=== PATIENT | male | born 1950 | race Caucasian/White ===

== ENCOUNTER 2018-08-05 06:18 | Outpatient (CLI) | payer OTHER ==
[~2018-08-05] VITALS: Ht 170.2 cm; Wt 88.0 kg
[2018-08-05] MEDS ORDERED: ROSU20TA PO (13:27)
[2018-08-05] MEDS ORDERED: LISI-552 PO (13:27)
== END 2018-08-05 13:29 | disposition home or self-care (01) ==
LOC: PREOP 06:18
PROVIDERS: ATTEND Internal Medicine
DX: Z01.818 Encounter for other preprocedural examination (principal)

== ENCOUNTER 2018-08-12 07:29 | Day surgery (SDC) | payer MEDICARE, OTHER ==
--- NOTE | 2018-08-02 04:38 | HISTORY AND PHYSICAL ---
DATE OF SERVICE: COLONOSCOPY HISTORY AND PHYSICAL HISTORY OF PRESENT ILLNESS: The patient is a 68-year-old white male referred for screening colonoscopy by Dr. Cardona. He believes that he had one other colonoscopy per Dr. Dejesus over 10 years ago. There is no record in our electronic medical record, probably predates this. He is deemed to be of average risk as he is not aware of any family history for colon cancer or polyps and he does not believe that he had any polyps on his earlier colonoscopy. He denies abdominal pain, bowel habit change, melena or bright red blood per rectum. PAST MEDICAL HISTORY: Significant for hypertension and hyperlipidemia. He underwent cardiac catheterization in 2008 and was found to have no evidence for coronary artery disease. PAST SURGICAL HISTORY: He has had bilateral inguinal hernia repair. REVIEW OF SYSTEMS: CONSTITUTIONAL: He denies any night sweats, chills, fever or weight change. CARDIOVASCULAR: He denies chest pain or discomfort, shortness of breath, palpitations or syncope. RESPIRATORY: The patient denies cough, dyspnea or pedal edema. GASTROINTESTINAL: As stated in the HPI. PHYSICAL EXAMINATION: GENERAL: Reveals a well-appearing white male, in no acute distress. HEENT: Unremarkable with a Mallampati class 3 oropharyngeal configuration. VITAL SIGNS: Blood pressure 130/80, heart rate 66 and regular. HEENT: Oral cavity was clear. No exudate was noted. CHEST: Clear to auscultation. CARDIOVASCULAR: Reveals a regular rate and rhythm without murmur, S3 or S4. ABDOMEN: Soft, supple without mass, organomegaly or tenderness. Bowel sounds are positive. No bruits are noted. No evidence to palpation is noted for abdominal aortic aneurysm. EXTREMITIES: Reveal no cyanosis, clubbing or edema. ASSESSMENT: The patient was set up for screening colonoscopy on 08/12/2018. Prep instructions with split dose prep were given and questions were answered. I thank you for the referral of this pleasant gentleman. Job ID: [id number] DocumentID: [id number] Dictated Date: 07/28/2018 16:35:29 Census Clerk Date: 07/28/2018 17:02:29 Dictated By: HAYLIE MARIE MD
[~2018-08-12] VITALS: Ht 170.2 cm; Wt 88.0 kg
[~2018-08-12 07:29] MED LIST: LISI-552 PO; ROSU20TA PO
[2018-08-12] MEDS ORDERED: D5 LR IV SOLUTION 1,000 ML IV ONE (07:31)
--- OUTSIDE RECORDS SUMMARY | 2018-08-12 07:33 | XMS REPORT | CCD ---
Author Author [facility] Organization [facility] Address [address] [place] [address] Phone Care Team Providers Care General Dentist/Owner Name Role Phone PP Unavailable CCM Unavailable Summary Purpose Interface Exchange Insurance Providers Payer name Policy type / Coverage type Covered democrat ID Effective Begin Date Effective End Date [employer] Medicare Part B [id number] Unknown [facility] Medicare Part B [id number] Unknown Family history Mother Diagnosis Age At Onset Skin cancer Unknown Father Diagnosis Age At Onset Cancer Unknown Skin cancer Unknown Hypertension Unknown Social History Social History Element Codes Description Effective Dates Marital status Unknown [place] 01/05/2017 Number of children Unknown 2 01/05/2017 Employment Unknown Retired 01/05/[address]: 0401045 Former smoker 1978 01/05/[address]: 826310 Currently drinks alcohol 01/05/2017 Frequency of drinks SNOMED CT: 070032510 1-4 drinks per week 3 wkly 01/05/2017 Allergies, Adverse Reactions, Alerts Substance Reaction Codes Entered Date Inactivated Date Status * NO KNOWN DRUG ALLERGIES Unknown 01/05/2017 No Inactive Date Active Past Medical History Illness Codes Condition Status Onset Date Resolved Date Essential (primary) hypertension ICD-9: 401.1 ICD-10: I10 Active 01/05/2017 Unknown Mixed hyperlipidemia ICD-9: 272.2 ICD-10: E78.2 Active 01/05/2017 Unknown Encounter for screening for malignant neoplasm of prostate ICD-9: V76.44 ICD-10: Z12.5 Active 06/29/2018 Unknown Hyperglycemia, unspecified ICD-9: 790.29 ICD-10: R73.9 Active 12/31/2017 Unknown Problems Condition Codes Effective Dates Condition Status Essential (primary) hypertension ICD-9: 401.1 ICD-10: I10 01/05/2017 Active Mixed hyperlipidemia ICD-9: 272.2 ICD-10: E78.2 01/05/2017 Active Encounter for screening for malignant neoplasm of prostate ICD-9: V76.44 ICD-10: Z12.5 06/29/2018 Active Hyperglycemia, unspecified ICD-9: 790.29 ICD-10: R73.9 12/31/2017 Active Medications Medication Codes Instructions Start Date Stop Date Status Fill Instructions bisoprolol 10 mg-hydrochlorothiazide 6.25 mg tablet RxNorm: 033764 1 Tablet(s) PO daily 07/04/2018 06/28/2019 Active Avodart 0.5 mg capsule RxNorm: 240469 1 Capsule(s) PO QPM 07/0409/26/2019 Active rosuvastatin 10 mg tablet RxNorm: 043747 Tablet(s) TAKE 1 TABLET DAILY 07/04/2018 06/28/2019 Active Avodart 0.5 mg capsule RxNorm: 637921 1 Capsule(s) PO QPM 07/0407/03/2018 Inactive rosuvastatin 10 mg tablet RxNorm: 529548 TAKE 1 TABLET DAILY 07/03/2018 Inactive rosuvastatin 10 mg tablet RxNorm: 295075 1 Tablet(s) PO daily 05/27/2017 02/20/2018 Inactive bisoprolol 10 mg-hydrochlorothiazide 6.25 mg tablet RxNorm: 433250 1 Tablet(s) PO daily 05/27/2017 02/20/2018 Inactive bisoprolol 10 mg-hydrochlorothiazide 6.25 mg tablet RxNorm: 703388 1 Tablet(s) PO daily 01/05/2017 01/04/2017 Inactive bisoprolol 10 mg-hydrochlorothiazide 6.25 mg tablet RxNorm: 569789 1 Tablet(s) PO daily 01/05/2017 05/26/2017 Inactive rosuvastatin 10 mg tablet RxNorm: 966065 1 Tablet(s) PO daily 01/05/2017 05/26/2017 Inactive rosuvastatin 10 mg tablet RxNorm: 456178 1 Tablet(s) PO daily No Start Date 01/04/2017 Inactive Medication Administered No Medication Administered data Immunizations No Immunization data Assessments Condition Codes Effective Dates Essential (primary) hypertension ICD-10: I10 ICD-9: 401.1 07/04/2018 Mixed hyperlipidemia ICD-10: E78.2 ICD-9: 272.2 07/04/2018 Encounter for screening for malignant neoplasm of prostate ICD-10: Z12.5 ICD-9: V76.44 06/29/2018 Hyperglycemia, unspecified ICD-10: R73.9 ICD-9: 790.29 12/31/2017 Reason For Visit Reason For Visit Effective Dates Notes hypertension 07/04/2018 hypertension 01/03/2018 hypertension 07/08/2017 hypertension 01/05/2017 Results Observation Observation Code Item Item Code Result Date Tsh Ord6 TSH (3rd IS) 3.23 uIU/mL 06/30/2018 Total Psa Ord10 PSA 4.09 ng/mL 06/30/2018 Cbc With Differential Ord2 WBC 5.08 K/ul 06/30/2018 Cbc With Differential Ord2 RBC 4.76 M/ul 06/30/2018 Cbc With Differential Ord2 HGB 15.8 g/dl 06/30/2018 Cbc With Differential Ord2 HCT 44.5 % 06/30/2018 Cbc With Differential Ord2 Neut% 53.6 % 06/30/2018 Cbc With Differential Ord2 Lymph% 35.0 % 06/30/2018 Cbc With Differential Ord2 MCV 93.5 fl 06/30/2018 Cbc With Differential Ord2 [place]% 9.4 % 06/30/2018 Cbc With Differential Ord2 MCH 33.2 pg 06/30/2018 Cbc With Differential Ord2 Eos% 1.6 % 06/30/2018 Cbc With Differential Ord2 MCHC 35.5 pg 06/30/2018 Cbc With Differential Ord2 PLT 184 K/ul 06/30/2018 Cbc With Differential Ord2 Baso% 0.4 % 06/30/2018 Cbc With Differential Ord2 Neut ABS# 2.72 K/ul 06/30/2018 Cbc With Differential Ord2 RDW 12.5 % 06/30/2018 Cbc With Differential Ord2 Lymph ABS# 1.78 K/ul 06/30/2018 Cbc With Differential Ord2 [place] ABS# 0.5 K/ul 06/30/2018 Cbc With Differential Ord2 Eos ABS# 0.1 K/ul 06/30/2018 Cbc With Differential Ord2 Baso ABS# 0.0 K/ul 06/30/2018 Lipid Ord30 CHOL 152 mg/dL 06/30/2018 Lipid Ord30 HDL 51.0 mg/dl 06/30/2018 Lipid Ord30 TRIG 102 mg/dL 06/30/2018 Lipid Ord30 LDL 81 mg/dL 06/30/2018 Lipid Ord30 C/HDL 3.0 Ratio 06/30/2018 Comp Metabolic Foo520 NA 139 mEq/L 06/30/2018 Comp Metabolic Dhd219 K 4.7 mEq/L 06/30/2018 Comp Metabolic Wys624 CL 101 mEq/L 06/30/2018 Comp Metabolic Zka972 CO2 31.0 mEq/L 06/30/2018 Comp Metabolic Ygu595 ANION GAP 12 06/30/2018 Comp Metabolic Fxk023 GLUCOSE 128 mg/dL 06/30/2018 Comp Metabolic Llr665 Creat 1.0 mg/dL 06/30/2018 Comp Metabolic Jgf601 eGFR 81 ml/min/1.73m2 06/30/2018 Comp Metabolic Pjk570 BUN 20 mg/dL 06/30/2018 Comp Metabolic Teq288 B/C Ratio 20.4 Ratio 06/30/2018 Comp Metabolic Ppr925 CALCIUM 9.7 mg/dL 06/30/2018 Comp Metabolic Ogc042 ALK PHOS 41 U/L 06/30/2018 Comp Metabolic Mwx597 AST(SGOT) 22 U/L 06/30/2018 Comp Metabolic Qdc239 ALT(SGPT) 39 U/L 06/30/2018 Comp Metabolic Wmf292 BILI T 1.0 mg/dL 06/30/2018 Comp Metabolic Wps050 ALBUMIN 4.4 g/dL 06/30/2018 Comp Metabolic Ywg561 TPRO 6.9 g/dL 06/30/2018 Comp Metabolic Vom520 GLOB 2.5 g/dL 06/30/2018 Comp Metabolic Qvg506 A/G Ratio 1.7 Ratio 06/30/2018 Comp Metabolic Zln958 Osmo 282 mOsmo 06/30/2018 Comp Metabolic Fyl822 NA 140 mEq/L 12/31/2017 Comp Metabolic Vtq168 K 5.1 mEq/L 12/31/2017 Comp Metabolic Zmt035 CL 103 mEq/L 12/31/2017 Comp Metabolic Bjx994 CO2 31.0 mEq/L 12/31/2017 Comp Metabolic Zgm378 ANION GAP 11 12/31/2017 Comp Metabolic Xba062 GLUCOSE 134 mg/dL 12/31/2017 Comp Metabolic Pcy405 Creat 1.0 mg/dL 12/31/2017 Comp Metabolic Fxm857 eGFR 84 ml/min/1.73m2 12/31/2017 Comp Metabolic Epn787 BUN 22 mg/dL 12/31/2017 Comp Metabolic Ahj410 B/C Ratio 23.2 Ratio 12/31/2017 Comp Metabolic Ofd063 CALCIUM 9.6 mg/dL 12/31/2017 Comp Metabolic Tuh990 ALK PHOS 37 U/L 12/31/2017 Comp Metabolic Zbo528 AST(SGOT) 19 U/L 12/31/2017 Comp Metabolic Bvc816 ALT(SGPT) 28 U/L 12/31/2017 Comp Metabolic Wva490 BILI T 0.8 mg/dL 12/31/2017 Comp Metabolic Cug976 ALBUMIN 4.4 g/dL 12/31/2017 Comp Metabolic Whp639 TPRO 6.8 g/dL 12/31/2017 Comp Metabolic Zdv657 GLOB 2.4 g/dL 12/31/2017 Comp Metabolic Gnf862 A/G Ratio 1.8 Ratio 12/31/2017 Comp Metabolic Oji170 Osmo 285 mOsmo 12/31/2017 Cbc With Differential Ord2 WBC 5.78 K/ul 12/31/2017 Cbc With Differential Ord2 RBC 4.89 M/ul 12/31/2017 Cbc With Differential Ord2 HGB 16.5 g/dl 12/31/2017 Cbc With Differential Ord2 HCT 45.7 % 12/31/2017 Cbc With Differential Ord2 Neut% 56.2 % 12/31/2017 Cbc With Differential Ord2 MCV 93.5 fl 12/31/2017 Cbc With Differential Ord2 Lymph% 32.9 % 12/31/2017 Cbc With Differential Ord2 MCH 33.7 pg 12/31/2017 Cbc With Differential Ord2 [place]% 9.3 % 12/31/2017 Cbc With Differential Ord2 MCHC 36.1 pg 12/31/2017 Cbc With Differential Ord2 Eos% 1.4 % 12/31/2017 Cbc With Differential Ord2 PLT 194 K/ul 12/31/2017 Cbc With Differential Ord2 Baso% 0.2 % 12/31/2017 Cbc With Differential Ord2 RDW 12.2 % 12/31/2017 Cbc With Differential Ord2 Neut ABS# 3.25 K/ul 12/31/2017 Cbc With Differential Ord2 Lymph ABS# 1.90 K/ul 12/31/2017 Cbc With Differential Ord2 [place] ABS# 0.5 K/ul 12/31/2017 Cbc With Differential Ord2 Eos ABS# 0.1 K/ul 12/31/2017 Cbc With Differential Ord2 Baso ABS# 0.0 K/ul 12/31/2017 Lipid Ord30 CHOL 147 mg/dL 12/31/2017 Lipid Ord30 HDL 50.0 mg/dl 12/31/2017 Lipid Ord30 TRIG 91 mg/dL 12/31/2017 Lipid Ord30 LDL 79 mg/dL 12/31/2017 Lipid Ord30 C/HDL 2.9 Ratio 12/31/2017 %Hba1C Wth923 % HbA1c 29608-3 5.5 % 12/31/2017 %Hba1C Mje147 Gluc Ave 111 mg/dL 12/31/2017 Lipid Ord30 CHOL 154 mg/dL 07/02/2017 Lipid Ord30 HDL 49.0 mg/dl 07/02/2017 Lipid Ord30 TRIG 104 mg/dL 07/02/2017 Lipid Ord30 LDL 84 mg/dL 07/02/2017 Lipid Ord30 C/HDL 3.1 Ratio 07/02/2017 Tsh Ord6 hTSH II 2.76 uIU/mL 07/02/2017 Comp Metabolic Cwg917 NA 141 mEq/L 07/02/2017 Comp Metabolic Ilu970 K 4.7 mEq/L 07/02/2017 Comp Metabolic Hus738 CL 103 mEq/L 07/02/2017 Comp Metabolic Unl655 CO2 31.0 mEq/L 07/02/2017 Comp Metabolic Qzj901 ANION GAP 12 07/02/2017 Comp Metabolic Ebh962 GLUCOSE 135 mg/dL 07/02/2017 Comp Metabolic Gco063 Creat 0.9 mg/dL 07/02/2017 Comp Metabolic Ysm888 eGFR 90 ml/min/1.73m2 07/02/2017 Comp Metabolic Iuq632 BUN 16 mg/dL 07/02/2017 Comp Metabolic Xfi637 B/C Ratio 17.8 Ratio 07/02/2017 Comp Metabolic Jhr869 CALCIUM 9.7 mg/dL 07/02/2017 Comp Metabolic Koy245 ALK PHOS 42 U/L 07/02/2017 Comp Metabolic Czl069 AST(SGOT) 24 U/L 07/02/2017 Comp Metabolic Iey219 ALT(SGPT) 36 U/L 07/02/2017 Comp Metabolic Sng695 BILI T 1.1 mg/dL 07/02/2017 Comp Metabolic Stk982 ALBUMIN 4.5 g/dL 07/02/2017 Comp Metabolic Erx380 TPRO 6.7 g/dL 07/02/2017 Comp Metabolic Kib983 GLOB 2.3 g/dL 07/02/2017 Comp Metabolic Yfn406 A/G Ratio 2.0 Ratio 07/02/2017 Comp Metabolic Dlv628 Osmo 284 mOsmo 07/02/2017 Cbc With Differential Ord2 WBC 5.15 K/ul 07/02/2017 Cbc With Differential Ord2 RBC 4.75 M/ul 07/02/2017 Cbc With Differential Ord2 HGB 16.1 g/dl 07/02/2017 Cbc With Differential Ord2 HCT 44.6 % 07/02/2017 Cbc With Differential Ord2 Neut% 55.7 % 07/02/2017 Cbc With Differential Ord2 Lymph% 34.2 % 07/02/2017 Cbc With Differential Ord2 MCV 93.9 fl 07/02/2017 Cbc With Differential Ord2 MCH 33.9 pg 07/02/2017 Cbc With Differential Ord2 [place]% 8.0 % 07/02/2017 Cbc With Differential Ord2 MCHC 36.1 pg 07/02/2017 Cbc With Differential Ord2 Eos% 1.7 % 07/02/2017 Cbc With Differential Ord2 PLT 182 K/ul 07/02/2017 Cbc With Differential Ord2 Baso% 0.4 % 07/02/2017 Cbc With Differential Ord2 RDW 12.4 % 07/02/2017 Cbc With Differential Ord2 Neut ABS# 2.87 K/ul 07/02/2017 Cbc With Differential Ord2 Lymph ABS# 1.76 K/ul 07/02/2017 Cbc With Differential Ord2 [place] ABS# 0.4 K/ul 07/02/2017 Cbc With Differential Ord2 Eos ABS# 0.1 K/ul 07/02/2017 Cbc With Differential Ord2 Baso ABS# 0.0 K/ul 07/02/2017 %Hba1C Cno995 % HbA1c 88125-7 5.3 % 07/02/2017 %Hba1C Mtv616 Gluc Ave 105 mg/dL 07/02/2017 Review of Systems System Result Effective Dates Constitutional No recent illness 2018 Constitutional No chills 07/04/2018 Constitutional No fatigue 07/04/2018 Constitutional No fever 07/04/2018 Constitutional No insomnia 07/04/2018 Constitutional No malaise 07/04/2018 Eyes No vision change 07/04/2018 Ears/Nose/Throat/Neck No dental pain 12/2018 Ears/Nose/Throat/Neck No dizziness 2018 Ears/Nose/Throat/Neck No dysphagia 2018 Ears/Nose/Throat/Neck No headache 2018 Ears/Nose/Throat/Neck No hearing loss 12/2018 Ears/Nose/Throat/Neck No nasal allergies 07/04/2018 Ears/Nose/Throat/Neck No sore throat 12/2018 Ears/Nose/Throat/Neck No postnasal drip 07/04/2018 Ears/Nose/Throat/Neck No sinus congestion 07/04/2018 Cardiovascular No chest pain/pressure 12/2018 Cardiovascular No dyspnea 07/04/2018 Cardiovascular No edema 07/04/2018 Cardiovascular No exercise intolerance Cardiovascular No fatigue 07/04/2018 Cardiovascular No near-syncope/dizziness 07/04/2018 Respiratory No chest tightness 2018 Respiratory No cough 07/04/2018 Respiratory No dyspnea 07/04/2018 Respiratory No pedal edema 07/04/2018 Gastrointestinal No abdominal pain 2018 Gastrointestinal No constipation 2018 Gastrointestinal No diarrhea 07/04/2018 Gastrointestinal No gastroesophageal reflux 07/04/2018 Gastrointestinal No nausea 07/04/2018 Gastrointestinal No vomiting 07/04/2018 Genitourinary/Nephrology No dysuria 07/04 Genitourinary/Nephrology No nocturia 12/2018 Genitourinary/Nephrology No urinary incontinence 07/04/2018 Musculoskeletal No stiffness 07/04/2018 Musculoskeletal No swelling 07/04/2018 Musculoskeletal No muscle weakness 2018 Musculoskeletal No myalgias 07/04/2018 Dermatologic No rash 07/04/2018 Dermatologic No sores 07/04/2018 Neurologic No dizziness 07/04/2018 Neurologic No headache 07/04/2018 Neurologic No neck pain 07/04/2018 Neurologic No syncope 07/04/2018 Psychiatric No anxiety 07/04/2018 Psychiatric No depression 07/04/2018 Musculoskeletal joint complaint 2018 Constitutional No recent illness 2017 Constitutional No chills 01/03/2018 Constitutional No fatigue 01/03/2018 Constitutional No fever 01/03/2018 Constitutional No insomnia 01/03/2018 Constitutional No malaise 01/03/2018 Eyes No vision change 01/03/2018 Ears/Nose/Throat/Neck No dental pain 02/2018 Ears/Nose/Throat/Neck No dizziness 2017 Ears/Nose/Throat/Neck No dysphagia 2017 Ears/Nose/Throat/Neck No headache 2017 Ears/Nose/Throat/Neck No hearing loss 02/2018 Ears/Nose/Throat/Neck No nasal allergies 01/03/2018 Ears/Nose/Throat/Neck No sore throat 02/2018 Ears/Nose/Throat/Neck No postnasal drip 01/03/2018 Ears/Nose/Throat/Neck No sinus congestion 01/03/2018 Cardiovascular No chest pain/pressure 02/2018 Cardiovascular No dyspnea 01/03/2018 Cardiovascular No edema 01/03/2018 Cardiovascular No exercise intolerance Cardiovascular No fatigue 01/03/2018 Cardiovascular No near-syncope/dizziness 01/03/2018 Respiratory No chest tightness 2017 Respiratory No cough 01/03/2018 Respiratory No dyspnea 01/03/2018 Respiratory No pedal edema 01/03/2018 Gastrointestinal No abdominal pain 2017 Gastrointestinal No constipation 2017 Gastrointestinal No diarrhea 01/03/2018 Gastrointestinal No gastroesophageal reflux 01/03/2018 Gastrointestinal No nausea 01/03/2018 Gastrointestinal No vomiting 01/03/2018 Genitourinary/Nephrology No dysuria 01/03 Genitourinary/Nephrology No nocturia 02/2018 Genitourinary/Nephrology No urinary incontinence 01/03/2018 Musculoskeletal No stiffness 01/03/2018 Musculoskeletal No swelling 01/03/2018 Musculoskeletal No muscle weakness 2017 Musculoskeletal No myalgias 01/03/2018 Dermatologic No rash 01/03/2018 Dermatologic No sores 01/03/2018 Neurologic No dizziness 01/03/2018 Neurologic No headache 01/03/2018 Neurologic No neck pain 01/03/2018 Neurologic No syncope 01/03/2018 Psychiatric No anxiety 01/03/2018 Psychiatric No depression 01/03/2018 Constitutional No recent illness 2017 Constitutional No chills 07/08/2017 Constitutional No fatigue 07/08/2017 Constitutional No fever 07/08/2017 Constitutional No insomnia 07/08/2017 Constitutional No malaise 07/08/2017 Eyes No vision change 07/08/2017 Ears/Nose/Throat/Neck No dental pain 04/2018 Ears/Nose/Throat/Neck No dizziness 2017 Ears/Nose/Throat/Neck No dysphagia 2017 Ears/Nose/Throat/Neck No headache 2017 Ears/Nose/Throat/Neck No hearing loss 04/2018 Ears/Nose/Throat/Neck No nasal allergies 07/08/2017 Ears/Nose/Throat/Neck No sore throat 04/2018 Ears/Nose/Throat/Neck No postnasal drip 07/08/2017 Ears/Nose/Throat/Neck No sinus congestion 07/08/2017 Cardiovascular No chest pain/pressure 04/2018 Cardiovascular No dyspnea 07/08/2017 Cardiovascular No edema 07/08/2017 Cardiovascular No exercise intolerance Cardiovascular No fatigue 07/08/2017 Cardiovascular No near-syncope/dizziness 07/08/2017 Respiratory No chest tightness 2017 Respiratory No cough 07/08/2017 Respiratory No dyspnea 07/08/2017 Respiratory No pedal edema 07/08/2017 Gastrointestinal No abdominal pain 2017 Gastrointestinal No constipation 2017 Gastrointestinal No diarrhea 07/08/2017 Gastrointestinal No gastroesophageal reflux 07/08/2017 Gastrointestinal No nausea 07/08/2017 Gastrointestinal No vomiting 07/08/2017 Genitourinary/Nephrology No dysuria 07/08 Genitourinary/Nephrology No nocturia 04/2018 Genitourinary/Nephrology No urinary incontinence 07/08/2017 Musculoskeletal No stiffness 07/08/2017 Musculoskeletal No swelling 07/08/2017 Musculoskeletal No muscle weakness 2017 Musculoskeletal No myalgias 07/08/2017 Dermatologic No rash 07/08/2017 Dermatologic No sores 07/08/2017 Neurologic No dizziness 07/08/2017 Neurologic No headache 07/08/2017 Neurologic No neck pain 07/08/2017 Neurologic No syncope 07/08/2017 Psychiatric No anxiety 07/08/2017 Psychiatric No depression 07/08/2017 Constitutional No recent illness 2016 Constitutional No chills 01/05/2017 Constitutional No fatigue 01/05/2017 Constitutional No fever 01/05/2017 Constitutional No insomnia 01/05/2017 Constitutional No malaise 01/05/2017 Eyes No vision change 01/05/2017 Ears/Nose/Throat/Neck No dental pain 04/2017 Ears/Nose/Throat/Neck No dizziness 2016 Ears/Nose/Throat/Neck No dysphagia 2016 Ears/Nose/Throat/Neck No headache 2016 Ears/Nose/Throat/Neck No hearing loss 04/2017 Ears/Nose/Throat/Neck No nasal allergies 01/05/2017 Ears/Nose/Throat/Neck No sore throat 04/2017 Ears/Nose/Throat/Neck No postnasal drip 01/05/2017 Ears/Nose/Throat/Neck No sinus congestion 01/05/2017 Cardiovascular No chest pain/pressure 04/2017 Cardiovascular No dyspnea 01/05/2017 Cardiovascular No edema 01/05/2017 Cardiovascular No exercise intolerance Cardiovascular No fatigue 01/05/2017 Cardiovascular No near-syncope/dizziness 01/05/2017 Respiratory No chest tightness 2016 Respiratory No cough 01/05/2017 Respiratory No dyspnea 01/05/2017 Respiratory No pedal edema 01/05/2017 Gastrointestinal No abdominal pain 2016 Gastrointestinal No constipation 2016 Gastrointestinal No diarrhea 01/05/2017 Gastrointestinal No gastroesophageal reflux 01/05/2017 Gastrointestinal No nausea 01/05/2017 Gastrointestinal No vomiting 01/05/2017 Genitourinary/Nephrology No dysuria 01/05 Genitourinary/Nephrology No nocturia 04/2017 Genitourinary/Nephrology No urinary incontinence 01/05/2017 Musculoskeletal No stiffness 01/05/2017 Musculoskeletal No swelling 01/05/2017 Musculoskeletal No muscle weakness 2016 Musculoskeletal No myalgias 01/05/2017 Dermatologic No rash 01/05/2017 Dermatologic No sores 01/05/2017 Neurologic No dizziness 01/05/2017 Neurologic No headache 01/05/2017 Neurologic No neck pain 01/05/2017 Neurologic No syncope 01/05/2017 Psychiatric No anxiety 01/05/2017 Psychiatric No depression 01/05/2017 Physical Exam Exam Name System Name Item Name Status Result Effective Dates Notes Full Exam - General 1994 Constitutional general appearance Development: well developed 07/04/2018 None Full Exam - General 1994 Constitutional general appearance Development: appears stated age 0107/04/2018 None Full Exam - General 1994 Constitutional general appearance Hygiene/Attention to Grooming: good hygiene 07/04/2018 None Full Exam - General 1994 Eyes conjunctiva /eyelids Overall: conjunctiva clear 07/04/2018 None Full Exam - General 1994 Eyes conjunctiva /eyelids Overall: cornea clear 07/04/2018 None Full Exam - General 1994 Eyes conjunctiva /eyelids Overall: eyelids normal 07/04/2018 None Full Exam - General 1994 Eyes pupils and irises Overall: pupils equal, round, reactive to light and accomodation 07/04/2018 None Full Exam - General 1995 Ears/Nose/Throat otoscopic exam Overall: external auditory canals clear 07/04/2018 None Full Exam - General 1994 Ears/Nose/Throat otoscopic exam Overall: tympanic membranes clear 07/04/2018 None Full Exam - General 1995 Ears/Nose/Throat lips/teeth/gingiva Overall: benign lips 07/04/2018 None Full Exam - General 1994 Ears/Nose/Throat lips/teeth/gingiva Overall: normal dentition 07/04/2018 None Full Exam - General 1995 Ears/Nose/Throat oral cavity/pharynx/larynx Overall: oral mucosa clear 07/04/2018 None Full Exam - General 1995 Ears/Nose/Throat oral cavity/pharynx/larynx Overall: oropharyngeal mucosa clear 07/04/2018 None Full Exam - General 1994 Ears/Nose/Throat oral cavity/pharynx/larynx Overall: hypopharynx benign 07/04/2018 None Full Exam - General 1994 Ears/Nose/Throat oral cavity/pharynx/larynx Overall: no masses 07/04/2018 None Full Exam - General 1994 Respiratory auscultation Overall: breath sounds clear bilaterally 07/04/2018 None Full Exam - General 1994 Respiratory respiratory effort/rhythm Overall: no retractions 07/04/2018 None Full Exam - General 1994 Respiratory respiratory effort/rhythm Overall: normal rate 07/04/2018 None Full Exam - General 1994 Cardiovascular extremities Overall: no clubbing 07/04/2018 None Full Exam - General 1994 Cardiovascular auscultation of heart Overall: regular rate 07/04/2018 None Full Exam - General 1994 Cardiovascular auscultation of heart Overall: normal heart sounds 07/04/2018 None Full Exam - General 1994 Abdomen abdominal exam Overall: no tenderness 07/04/2018 None Full Exam - General 1994 Abdomen abdominal exam Overall: normal bowel sounds 07/04/2018 None Full Exam - General 1994 Lymphatic neck nodes Overall: anterior cervical chain benign 07/04/2018 None Full Exam - General 1994 Lymphatic neck nodes Overall: posterior cervical chain benign 07/04/2018 None Full Exam - General 1994 Musculoskeletal spine, ribs and pelvis Overall: spine benign 07/04/2018 None Full Exam - General 1994 Musculoskeletal spine, ribs and pelvis Overall: sacroiliac joint benign 07/04/2018 None Full Exam - General 1994 Musculoskeletal spine, ribs and pelvis Overall: good posture 07/04/2018 None Full Exam - General 1994 Musculoskeletal head and neck Overall: head atraumatic 07/04/2018 None Full Exam - General 1994 Musculoskeletal head and neck Overall: cervical spine benign 07/04/2018 None Full Exam - General 1994 Integument inspection of skin Overall: few scattered moles, no gross abnormalities 07/04/2018 None Full Exam - General 1994 Neurologic deep tendon reflexes Overall: deep tendon reflexes intact 07/04/2018 None Full Exam - General 1994 Neurologic cranial nerves Overall: crainial nerves 2 - 12 grossly intact 07/04/2018 None Full Exam - General 1994 Psychiatric orientation/consciousness Overall: oriented to person, place and time 07/04/2018 None Full Exam - General 1994 Psychiatric mood and affect Overall: normal mood and affect 07/04/2018 None Full Exam - General 1994 Abdomen rectal exam Overall: good sphincter tone, no masses, no lesions 07/04/2018 None Full Exam - General 1994 Abdomen rectal exam Prostate: enlarged 07/04/2018 no nodules noted Full Exam - General 1994 Constitutional general appearance Development: well developed 01/03/2018 None Full Exam - General 1994 Constitutional general appearance Development: appears stated age 0701/03/2018 None Full Exam - General 1994 Constitutional general appearance Hygiene/Attention to Grooming: good hygiene 01/03/2018 None Full Exam - General 1994 Eyes conjunctiva /eyelids Overall: conjunctiva clear 01/03/2018 None Full Exam - General 1994 Eyes conjunctiva /eyelids Overall: cornea clear 01/03/2018 None Full Exam - General 1994 Eyes conjunctiva /eyelids Overall: eyelids normal 01/03/2018 None Full Exam - General 1994 Eyes pupils and irises Overall: pupils equal, round, reactive to light and accomodation 01/03/2018 None Full Exam - General 1994 Ears/Nose/Throat otoscopic exam Overall: external auditory canals clear 01/03/2018 None Full Exam - General 1994 Ears/Nose/Throat otoscopic exam Overall: tympanic membranes clear 01/03/2018 None Full Exam - General 1994 Ears/Nose/Throat lips/teeth/gingiva Overall: benign lips 01/03/2018 None Full Exam - General 1994 Ears/Nose/Throat lips/teeth/gingiva Overall: normal dentition 01/03/2018 None Full Exam - General 1994 Ears/Nose/Throat oral cavity/pharynx/larynx Overall: oral mucosa clear 01/03/2018 None Full Exam - General 1995 Ears/Nose/Throat oral cavity/pharynx/larynx Overall: oropharyngeal mucosa clear 01/03/2018 None Full Exam - General 1994 Ears/Nose/Throat oral cavity/pharynx/larynx Overall: hypopharynx benign 01/03/2018 None Full Exam - General 1994 Ears/Nose/Throat oral cavity/pharynx/larynx Overall: no masses 01/03/2018 None Full Exam - General 1994 Respiratory auscultation Overall: breath sounds clear bilaterally 01/03/2018 None Full Exam - General 1994 Respiratory respiratory effort/rhythm Overall: no retractions 01/03/2018 None Full Exam - General 1994 Respiratory respiratory effort/rhythm Overall: normal rate 01/03/2018 None Full Exam - General 1994 Cardiovascular extremities Overall: no clubbing 01/03/2018 None Full Exam - General 1994 Cardiovascular auscultation of heart Overall: regular rate 01/03/2018 None Full Exam - General 1994 Cardiovascular auscultation of heart Overall: normal heart sounds 01/03/2018 None Full Exam - General 1994 Abdomen abdominal exam Overall: no tenderness 01/03/2018 None Full Exam - General 1994 Abdomen abdominal exam Overall: normal bowel sounds 01/03/2018 None Full Exam - General 1994 Lymphatic neck nodes Overall: anterior cervical chain benign 01/03/2018 None Full Exam - General 1994 Lymphatic neck nodes Overall: posterior cervical chain benign 01/03/2018 None Full Exam - General 1994 Musculoskeletal spine, ribs and pelvis Overall: spine benign 01/03/2018 None Full Exam - General 1994 Musculoskeletal spine, ribs and pelvis Overall: sacroiliac joint benign 01/03/2018 None Full Exam - General 1994 Musculoskeletal spine, ribs and pelvis Overall: good posture 01/03/2018 None Full Exam - General 1994 Musculoskeletal head and neck Overall: head atraumatic 01/03/2018 None Full Exam - General 1994 Musculoskeletal head and neck Overall: cervical spine benign 01/03/2018 None Full Exam - General 1994 Integument inspection of skin Overall: few scattered moles, no gross abnormalities 01/03/2018 None Full Exam - General 1994 Neurologic deep tendon reflexes Overall: deep tendon reflexes intact 01/03/2018 None Full Exam - General 1994 Neurologic cranial nerves Overall: crainial nerves 2 - 12 grossly intact 01/03/2018 None Full Exam - General 1994 Psychiatric orientation/consciousness Overall: oriented to person, place and time 01/03/2018 None Full Exam - General 1994 Psychiatric mood and affect Overall: normal mood and affect 01/03/2018 None Full Exam - General 1994 Constitutional general appearance Development: well developed 07/08/2017 None Full Exam - General 1994 Constitutional general appearance Development: appears stated age 0107/08/2017 None Full Exam - General 1994 Constitutional general appearance Hygiene/Attention to Grooming: good hygiene 07/08/2017 None Full Exam - General 1994 Eyes conjunctiva /eyelids Overall: conjunctiva clear 07/08/2017 None Full Exam - General 1994 Eyes conjunctiva /eyelids Overall: cornea clear 07/08/2017 None Full Exam - General 1994 Eyes conjunctiva /eyelids Overall: eyelids normal 07/08/2017 None Full Exam - General 1994 Eyes pupils and irises Overall: pupils equal, round, reactive to light and accomodation 07/08/2017 None Full Exam - General 1994 Ears/Nose/Throat otoscopic exam Overall: external auditory canals clear 07/08/2017 None Full Exam - General 1994 Ears/Nose/Throat otoscopic exam Overall: tympanic membranes clear 07/08/2017 None Full Exam - General 1994 Ears/Nose/Throat lips/teeth/gingiva Overall: benign lips 07/08/2017 None Full Exam - General 1994 Ears/Nose/Throat lips/teeth/gingiva Overall: normal dentition 07/08/2017 None Full Exam - General 1994 Ears/Nose/Throat oral cavity/pharynx/larynx Overall: oral mucosa clear 07/08/2017 None Full Exam - General 1994 Ears/Nose/Throat oral cavity/pharynx/larynx Overall: oropharyngeal mucosa clear 07/08/2017 None Full Exam - General 1994 Ears/Nose/Throat oral cavity/pharynx/larynx Overall: hypopharynx benign 07/08/2017 None Full Exam - General 1994 Ears/Nose/Throat oral cavity/pharynx/larynx Overall: no masses 07/08/2017 None Full Exam - General 1994 Respiratory auscultation Overall: breath sounds clear bilaterally 07/08/2017 None Full Exam - General 1994 Respiratory respiratory effort/rhythm Overall: no retractions 07/08/2017 None Full Exam - General 1994 Respiratory respiratory effort/rhythm Overall: normal rate 07/08/2017 None Full Exam - General 1994 Cardiovascular extremities Overall: no clubbing 07/08/2017 None Full Exam - General 1994 Cardiovascular auscultation of heart Overall: regular rate 07/08/2017 None Full Exam - General 1994 Cardiovascular auscultation of heart Overall: normal heart sounds 07/08/2017 None Full Exam - General 1994 Abdomen abdominal exam Overall: no tenderness 07/08/2017 None Full Exam - General 1994 Abdomen abdominal exam Overall: normal bowel sounds 07/08/2017 None Full Exam - General 1994 Lymphatic neck nodes Overall: anterior cervical chain benign 07/08/2017 None Full Exam - General 1994 Lymphatic neck nodes Overall: posterior cervical chain benign 07/08/2017 None Full Exam - General 1994 Musculoskeletal spine, ribs and pelvis Overall: spine benign 07/08/2017 None Full Exam - General 1994 Musculoskeletal spine, ribs and pelvis Overall: sacroiliac joint benign 07/08/2017 None Full Exam - General 1994 Musculoskeletal spine, ribs and pelvis Overall: good posture 07/08/2017 None Full Exam - General 1994 Musculoskeletal head and neck Overall: head atraumatic 07/08/2017 None Full Exam - General 1994 Musculoskeletal head and neck Overall: cervical spine benign 07/08/2017 None Full Exam - General 1994 Integument inspection of skin Overall: few scattered moles, no gross abnormalities 07/08/2017 None Full Exam - General 1994 Neurologic deep tendon reflexes Overall: deep tendon reflexes intact 07/08/2017 None Full Exam - General 1994 Neurologic cranial nerves Overall: crainial nerves 2 - 12 grossly intact 07/08/2017 None Full Exam - General 1994 Psychiatric orientation/consciousness Overall: oriented to person, place and time 07/08/2017 None Full Exam - General 1994 Psychiatric mood and affect Overall: normal mood and affect 07/08/2017 None Full Exam - General 1994 Constitutional general appearance Development: well developed 01/05/2017 None Full Exam - General 1994 Constitutional general appearance Development: appears stated age 0701/05/2017 None Full Exam - General 1994 Constitutional general appearance Hygiene/Attention to Grooming: good hygiene 01/05/2017 None Full Exam - General 1994 Eyes conjunctiva /eyelids Overall: conjunctiva clear 01/05/2017 None Full Exam - General 1994 Eyes conjunctiva /eyelids Overall: cornea clear 01/05/2017 None Full Exam - General 1994 Eyes conjunctiva /eyelids Overall: eyelids normal 01/05/2017 None Full Exam - General 1994 Eyes pupils and irises Overall: pupils equal, round, reactive to light and accomodation 01/05/2017 None Full Exam - General 1994 Ears/Nose/Throat otoscopic exam Overall: external auditory canals clear 01/05/2017 None Full Exam - General 1994 Ears/Nose/Throat otoscopic exam Overall: tympanic membranes clear 01/05/2017 None Full Exam - General 1994 Ears/Nose/Throat lips/teeth/gingiva Overall: benign lips 01/05/2017 None Full Exam - General 1994 Ears/Nose/Throat lips/teeth/gingiva Overall: normal dentition 01/05/2017 None Full Exam - General 1994 Ears/Nose/Throat oral cavity/pharynx/larynx Overall: oral mucosa clear 01/05/2017 None Full Exam - General 1994 Ears/Nose/Throat oral cavity/pharynx/larynx Overall: oropharyngeal mucosa clear 01/05/2017 None Full Exam - General 1994 Ears/Nose/Throat oral cavity/pharynx/larynx Overall: hypopharynx benign 01/05/2017 None Full Exam - General 1994 Ears/Nose/Throat oral cavity/pharynx/larynx Overall: no masses 01/05/2017 None Full Exam - General 1994 Respiratory auscultation Overall: breath sounds clear bilaterally 01/05/2017 None Full Exam - General 1994 Respiratory respiratory effort/rhythm Overall: no retractions 01/05/2017 None Full Exam - General 1994 Respiratory respiratory effort/rhythm Overall: normal rate 01/05/2017 None Full Exam - General 1994 Cardiovascular extremities Overall: no clubbing 01/05/2017 None Full Exam - General 1994 Cardiovascular auscultation of heart Overall: regular rate 01/05/2017 None Full Exam - General 1994 Cardiovascular auscultation of heart Overall: normal heart sounds 01/05/2017 None Full Exam - General 1994 Abdomen abdominal exam Overall: no tenderness 01/05/2017 None Full Exam - General 1994 Abdomen abdominal exam Overall: normal bowel sounds 01/05/2017 None Full Exam - General 1994 Lymphatic neck nodes Overall: anterior cervical chain benign 01/05/2017 None Full Exam - General 1994 Lymphatic neck nodes Overall: posterior cervical chain benign 01/05/2017 None Full Exam - General 1994 Musculoskeletal spine, ribs and pelvis Overall: spine benign 01/05/2017 None Full Exam - General 1994 Musculoskeletal spine, ribs and pelvis Overall: sacroiliac joint benign 01/05/2017 None Full Exam - General 1994 Musculoskeletal spine, ribs and pelvis Overall: good posture 01/05/2017 None Full Exam - General 1994 Musculoskeletal head and neck Overall: head atraumatic 01/05/2017 None Full Exam - General 1994 Musculoskeletal head and neck Overall: cervical spine benign 01/05/2017 None Full Exam - General 1994 Integument inspection of skin Overall: few scattered moles, no gross abnormalities 01/05/2017 None Full Exam - General 1994 Neurologic deep tendon reflexes Overall: deep tendon reflexes intact 01/05/2017 None Full Exam - General 1994 Neurologic cranial nerves Overall: crainial nerves 2 - 12 grossly intact 01/05/2017 None Full Exam - General 1994 Psychiatric orientation/consciousness Overall: oriented to person, place and time 01/05/2017 None Full Exam - General 1994 Psychiatric mood and affect Overall: normal mood and affect 01/05/2017 None Procedures No Procedures data Vital Signs Date Vital 07/04/2018 Blood Pressure 1: 118/70 Code : 8480-6 BMI: 30.2 Code : 56386-2 Heart Rate 1 : 64 bpm Height: 5'7" SpO2: 98% Weight: 193 lbs 01/03/2018 Blood Pressure 1: 120/78 Code : 8480-6 BMI: 29.4 Code : 87149-5 Heart Rate 1 : 60 bpm Height: 5'7" SpO2: 98% Weight: 188 lbs 07/08/2017 Blood Pressure 1: 122/70 Code : 8480-6 BMI: 29.1 Code : 86453-5 Heart Rate 1 : 66 bpm Height: 5'7" SpO2: 96% Weight: 186 lbs 01/05/2017 Blood Pressure 1: 132/70 Code : 8480-6 BMI: 29.9 Code : 42102-2 Heart Rate 1 : 55 bpm Height: 5'7" SpO2: 96% Weight: 191 lbs Functional Status No Functional Status data History of Present Illness Symptom Name Status Result Effective Date Notes Quality chronic 07/04 None Quality primary hypertension 07/04/2018 None Quality stable 2018 None Onset and Resolution ongoing 07/04/2018 None Onset of Symptom during adulthood 07/04/2018 None Blood Pressure Values patient checking blood pressure at home - did not bring in readings 2018 -Checks occasionally Alleviating Factors medication 07/04/2018 None Pertinent Findings Denies dizziness 07/04/2018 None Pertinent Findings Denies dyspnea 07/04/2018 None Pertinent Findings Denies edema 07/04/2018 None Onset and Resolution gradual in onset 07/04/2018 None Onset of Symptom during adulthood 07/04/2018 None Significant Medications statin 07/04/2018 None Alleviating Factors medication 07/04/2018 None Exacerbating Factors diet 07/04/2018 None Quality stable 2018 None hypertension Onset and Resolution ongoing 01/03/2018 None hypertension Blood Pressure Values patient checking blood pressure at home - did not bring in readings 01/03/2018 None hypertension Pertinent Findings Denies dizziness 01/03/2018 None hypertension Pertinent Findings Denies dyspnea 01/03/2018 None hypertension Pertinent Findings Denies edema 01/03/2018 None hypertension Quality chronic 01/03/2018 None hypertension Quality primary hypertension 01/03/2018 None hypertension Onset of Symptom during adulthood 01/03/2018 None hypertension Alleviating Factors medication 01/03/2018 None hyperlipidemia Onset and Resolution gradual in onset 01/03/2018 None hyperlipidemia Onset of Symptom during adulthood 01/03/2018 None hyperlipidemia Alleviating Factors medication 01/03/2018 None hyperlipidemia Exacerbating Factors diet 01/03/2018 None hyperlipidemia Significant Medications statin 01/03/2018 None hypertension Quality stable 01/03/2018 None hypertension Quality intermittent 07/08/2017 None hypertension Onset and Resolution ongoing 07/08/2017 None hypertension Blood Pressure Values patient checking blood pressure at home - did not bring in readings 07/08/2017 None hypertension Pertinent Findings Denies dizziness 07/08/2017 None hypertension Pertinent Findings Denies dyspnea 07/08/2017 None hyperlipidemia Onset and Resolution ongoing 07/08/2017 None hypertension Pertinent Findings Denies edema 07/08/2017 None hypertension Pertinent Findings Denies anxiety 07/08/2017 None hypertension Pertinent Findings Denies decreased energy 07/08/2017 None hypertension Triggers no known associated factors 07/08/2017 None hypertension Quality intermittent 01/05/2017 None hypertension Onset and Resolution ongoing 01/05/2017 None hypertension Blood Pressure Values patient checking blood pressure at home - did not bring in readings 01/05/2017 None hypertension Pertinent Findings Denies dizziness 01/05/2017 None hypertension Pertinent Findings Denies dyspnea 01/05/2017 None hyperlipidemia Onset and Resolution ongoing 01/05/2017 None Advance Directives No Advance Directive data Encounters Encounter Performer Location Codes Date ([id number]) [id number] EST. PATIENT, LEVEL IV Diagnosis: Essential (primary) hypertension[ICD10: I10] Diagnosis: Mixed hyperlipidemia[ICD10: E78.2] [facility] CPT-4: 19015 07/04/2018 ([id number]) [id number] EST. PATIENT, LEVEL IV Diagnosis: Essential (primary) hypertension[ICD10: I10] Diagnosis: Mixed hyperlipidemia[ICD10: E78.2] [facility] CPT-4: 57245 01/03/2018 ([id number]) [id number] EST. PATIENT, LEVEL IV Diagnosis: Essential (primary) hypertension[ICD10: I10] Diagnosis: Mixed hyperlipidemia[ICD10: E78.2] [facility] CPT-4: [id number] 07/08/2017 ([id number]) OFFICE VISIT, NEW - LEVEL 3 Diagnosis: Essential (primary) hypertension[ICD10: I10] Diagnosis: Mixed hyperlipidemia[ICD10: E78.2] [facility] CPT-4: [id number] 01/05/2017 Plan of Care Planned Activity Notes Codes Status Date Visit Plan: Hypertension - well controlled - continue with current medications, continue with no added salt diet. Pt has been encouraged to exercise daily. The pt has been advised to call the office if there are any acute concerns about change in blood pressure readings at home. Hyperlipidemia - pt has been counseled about appropriate diet, exercise, and need for low fat food choices. I have discussed the need for the patient to take medications as prescribed. If the patient has negative side effects from the medication, they are to CALL the office and not abruptly discontinue the medication without discussion with a practitioner in the office. We will check labs in 3-6 months for follow up on the patient's chronic medical problem and to assure normal liver response to medications. referral to [facility] for colonoscope 07/04/2018 Patient Education: Patient Medication Summary Completed 07/04/2018 Patient Education: Cholesterol Management Completed 07/04/2018 Patient Education: Patient Medication Summary Completed 06/29/2018 Visit Plan: Hypertension - well controlled - continue with current medications, continue with no added salt diet. Pt has been encouraged to exercise daily. The pt has been advised to call the office if there are any acute concerns about change in blood pressure readings at home. Hyperlipidemia - pt has been counseled about appropriate diet, exercise, and need for low fat food choices. I have discussed the need for the patient to take medications as prescribed. If the patient has negative side effects from the medication, they are to CALL the office and not abruptly discontinue the medication without discussion with a practitioner in the office. We will check labs in 3-6 months for follow up on the patient's chronic medical problem and to assure normal liver response to medications. 01/03/2018 App[id number] (15 min) Moderate 01/03/2018 Patient Education: Patient Medication Summary Completed 01/03/2018 Patient Education: Patient Medication Summary Completed 12/31/2017 Patient Education: Patient Medication Summary Completed 12/30/2017 Visit Plan: Hypertension - well controlled - continue with current medications, continue with no added salt diet. Pt has been encouraged to exercise daily. The pt has been advised to call the office if there are any acute concerns about change in blood pressure readings at home. Hyperlipidemia - pt has been counseled about appropriate diet, exercise, and need for low fat food choices. I have discussed the need for the patient to take medications as prescribed. If the patient has negative side effects from the medication, they are to CALL the office and not abruptly discontinue the medication without discussion with a practitioner in the office. We will check labs in 3-6 months for follow up on the patient's chronic medical problem and to assure normal liver response to medications. 07/08/2017 App[facility]ment: [phone] [id number] (15 min) Moderate 07/08/2017 Patient Education: Patient Medication Summary Completed 07/08/2017 Patient Education: Patient Medication Summary Completed 07/01/2017 Visit Plan: Hypertension - well controlled - continue with current medications, continue with no added salt diet. Pt has been encouraged to exercise daily. The pt has been advised to call the office if there are any acute concerns about change in blood pressure readings at home. Hyperlipidemia - pt has been counseled about appropriate diet, exercise, and need for low fat food choices. I have discussed the need for the patient to take medications as prescribed. If the patient has negative side effects from the medication, they are to CALL the office and not abruptly discontinue the medication without discussion with a practitioner in the office. We will check labs in 3-6 months for follow up on the patient's chronic medical problem and to assure normal liver response to medications. 01/05/2017 Patient Education: Patient Medication Summary Completed 01/05/2017 Patient Education: Obesity Completed 01/05/2017 Appointment: [id number] New Patient 12/30/2016 Instructions Comment . Hypertension - well controlled - continue with current medications, continue with no added salt diet. Pt has been encouraged to exercise daily. The pt has been advised to call the office if there are any acute concerns about change in blood pressure readings at home. Hyperlipidemia - pt has been counseled about appropriate diet, exercise, and need for low fat food choices. I have discussed the need for the patient to take medications as prescribed. If the patient has negative side effects from the medication, they are to CALL the office and not abruptly discontinue the medication without discussion with a practitioner in the office. We will check labs in 3-6 months for follow up on the patient's chronic medical problem and to assure normal liver response to medications. corcidin HBP . Hypertension - well controlled - continue with current medications, continue with no added salt diet. Pt has been encouraged to exercise daily. The pt has been advised to call the office if there are any acute concerns about change in blood pressure readings at home. Hyperlipidemia - pt has been counseled about appropriate diet, exercise, and need for low fat food choices. I have discussed the need for the patient to take medications as prescribed. If the patient has negative side effects from the medication, they are to CALL the office and not abruptly discontinue the medication without discussion with a practitioner in the office. We will check labs in 3-6 months for follow up on the patient's chronic medical problem and to assure normal liver response to medications. . Hypertension - well controlled - continue with current medications, continue with no added salt diet. Pt has been encouraged to exercise daily. The pt has been advised to call the office if there are any acute concerns about change in blood pressure readings at home. Hyperlipidemia - pt has been counseled about appropriate diet, exercise, and need for low fat food choices. I have discussed the need for the patient to take medications as prescribed. If the patient has negative side effects from the medication, they are to CALL the office and not abruptly discontinue the medication without discussion with a practitioner in the office. We will check labs in 3-6 months for follow up on the patient's chronic medical problem and to assure normal liver response to medications. . Hypertension - well controlled - continue with current medications, continue with no added salt diet. Pt has been encouraged to exercise daily. The pt has been advised to call the office if there are any acute concerns about change in blood pressure readings at home. Hyperlipidemia - pt has been counseled about appropriate diet, exercise, and need for low fat food choices. I have discussed the need for the patient to take medications as prescribed. If the patient has negative side effects from the medication, they are to CALL the office and not abruptly discontinue the medication without discussion with a practitioner in the office. We will check labs in 3-6 months for follow up on the patient's chronic medical problem and to assure normal liver response to medications. referral to [facility] for [facility]oscope
--- OUTSIDE RECORDS SUMMARY | 2018-08-12 07:34 | XMS REPORT | CCD ---
Author Author [facility] Organization [facility] Address [address] [place] [address] Phone Care Team Providers Care Summer Clerk Name Role Phone PP Unavailable CCM Unavailable Summary Purpose Interface Exchange Insurance Providers Payer name Policy type / Coverage type Covered democrat ID Effective Begin Date Effective End Date [employer] [employer] Medicare Part B [id number] Unknown [facility] Medicare Part B [id number] Unknown Family history Mother Diagnosis Age At Onset Skin cancer Unknown Father Diagnosis Age At Onset Cancer Unknown Skin cancer Unknown Hypertension Unknown Social History Social History Element Codes Description Effective Dates Marital status Unknown [place] 01/05/2017 Number of children Unknown 2 01/05/2017 Employment Unknown Retired 01/05/[address]: 3732035 Former smoker 1978 01/05/[address]: 224496 Currently drinks alcohol 01/05/2017 Frequency of drinks SNOMED CT: 249736275 1-4 drinks per week 3 wkly 01/05/2017 Allergies, Adverse Reactions, Alerts Substance Reaction Codes Entered Date Inactivated Date Status * NO KNOWN DRUG ALLERGIES Unknown 01/05/2017 No Inactive Date Active Past Medical History Illness Codes Condition Status Onset Date Resolved Date Encounter for screening for malignant neoplasm of prostate ICD-9: V76.44 ICD-10: Z12.5 Active 06/29/2018 Unknown Essential (primary) hypertension ICD-9: 401.1 ICD-10: I10 Active 01/05/2017 Unknown Hyperglycemia, unspecified ICD-9: 790.29 ICD-10: R73.9 Active 12/31/2017 Unknown Mixed hyperlipidemia ICD-9: 272.2 ICD-10: E78.2 Active 01/05/2017 Unknown Problems Condition Codes Effective Dates Condition Status Encounter for screening for malignant neoplasm of prostate ICD-9: V76.44 ICD-10: Z12.5 06/29/2018 Active Essential (primary) hypertension ICD-9: 401.1 ICD-10: I10 01/05/2017 Active Hyperglycemia, unspecified ICD-9: 790.29 ICD-10: R73.9 12/31/2017 Active Mixed hyperlipidemia ICD-9: 272.2 ICD-10: E78.2 01/05/2017 Active Medications Medication Codes Instructions Start Date Stop Date Status Fill Instructions rosuvastatin 10 mg tablet RxNorm: 330357 TAKE 1 TABLET DAILY 03/08/2019 Active bisoprolol 10 mg-hydrochlorothiazide 6.25 mg tablet RxNorm: 000903 1 Tablet(s) PO daily 05/27/2017 02/20/2018 Inactive rosuvastatin 10 mg tablet RxNorm: 668631 1 Tablet(s) PO daily 05/27/2017 02/20/2018 Inactive bisoprolol 10 mg-hydrochlorothiazide 6.25 mg tablet RxNorm: 372723 1 Tablet(s) PO daily 01/05/2017 01/04/2017 Inactive bisoprolol 10 mg-hydrochlorothiazide 6.25 mg tablet RxNorm: 850869 1 Tablet(s) PO daily 01/05/2017 05/26/2017 Inactive rosuvastatin 10 mg tablet RxNorm: 949939 1 Tablet(s) PO daily 01/05/2017 05/26/2017 Inactive rosuvastatin 10 mg tablet RxNorm: 639503 1 Tablet(s) PO daily No Start Date 01/04/2017 Inactive Medication Administered No Medication Administered data Immunizations No Immunization data Assessments Condition Codes Effective Dates Encounter for screening for malignant neoplasm of prostate ICD-10: Z12.5 ICD-9: V76.44 06/29/2018 Essential (primary) hypertension ICD-10: I10 ICD-9: 401.1 06/29/2018 Mixed hyperlipidemia ICD-10: E78.2 ICD-9: 272.2 06/29/2018 Hyperglycemia, unspecified ICD-10: R73.9 ICD-9: 790.29 12/31/2017 Reason For Visit Reason For Visit Effective Dates Notes hypertension 01/03/2018 hypertension 07/08/2017 hypertension 01/05/2017 Results Observation Observation Code Item Item Code Result Date Comp Metabolic Bzj077 NA 140 mEq/L 12/31/2017 Comp Metabolic Vfb854 K 5.1 mEq/L 12/31/2017 Comp Metabolic Iqa176 CL 103 mEq/L 12/31/2017 Comp Metabolic Fbd816 CO2 31.0 mEq/L 12/31/2017 Comp Metabolic Hjx156 ANION GAP 11 12/31/2017 Comp Metabolic Ztz805 GLUCOSE 134 mg/dL 12/31/2017 Comp Metabolic Ayr284 Creat 1.0 mg/dL 12/31/2017 Comp Metabolic Gwr239 eGFR 84 ml/min/1.73m2 12/31/2017 Comp Metabolic Utn937 BUN 22 mg/dL 12/31/2017 Comp Metabolic Jpm841 B/C Ratio 23.2 Ratio 12/31/2017 Comp Metabolic Cxk248 CALCIUM 9.6 mg/dL 12/31/2017 Comp Metabolic Ujd509 ALK PHOS 37 U/L 12/31/2017 Comp Metabolic Adk075 AST(SGOT) 19 U/L 12/31/2017 Comp Metabolic Ahc799 ALT(SGPT) 28 U/L 12/31/2017 Comp Metabolic Oel917 BILI T 0.8 mg/dL 12/31/2017 Comp Metabolic Zfa601 ALBUMIN 4.4 g/dL 12/31/2017 Comp Metabolic Vog019 TPRO 6.8 g/dL 12/31/2017 Comp Metabolic Wge831 GLOB 2.4 g/dL 12/31/2017 Comp Metabolic Ofy771 A/G Ratio 1.8 Ratio 12/31/2017 Comp Metabolic Fom439 Osmo 285 mOsmo 12/31/2017 Cbc With Differential Ord2 WBC 5.78 K/ul 12/31/2017 Cbc With Differential Ord2 RBC 4.89 M/ul 12/31/2017 Cbc With Differential Ord2 HGB 16.5 g/dl 12/31/2017 Cbc With Differential Ord2 HCT 45.7 % 12/31/2017 Cbc With Differential Ord2 Neut% 56.2 % 12/31/2017 Cbc With Differential Ord2 Lymph% 32.9 % 12/31/2017 Cbc With Differential Ord2 MCV 93.5 fl 12/31/2017 Cbc With Differential Ord2 MCH 33.7 pg 12/31/2017 Cbc With Differential Ord2 [place]% 9.3 % 12/31/2017 Cbc With Differential Ord2 MCHC 36.1 pg 12/31/2017 Cbc With Differential Ord2 Eos% 1.4 % 12/31/2017 Cbc With Differential Ord2 PLT 194 K/ul 12/31/2017 Cbc With Differential Ord2 Baso% 0.2 % 12/31/2017 Cbc With Differential Ord2 Neut ABS# 3.25 K/ul 12/31/2017 Cbc With Differential Ord2 RDW 12.2 % 12/31/2017 Cbc With Differential Ord2 Lymph ABS# 1.90 K/ul 12/31/2017 Cbc With Differential Ord2 [place] ABS# 0.5 K/ul 12/31/2017 Cbc With Differential Ord2 Eos ABS# 0.1 K/ul 12/31/2017 Cbc With Differential Ord2 Baso ABS# 0.0 K/ul 12/31/2017 Lipid Ord30 CHOL 147 mg/dL 12/31/2017 Lipid Ord30 HDL 50.0 mg/dl 12/31/2017 Lipid Ord30 TRIG 91 mg/dL 12/31/2017 Lipid Ord30 LDL 79 mg/dL 12/31/2017 Lipid Ord30 C/HDL 2.9 Ratio 12/31/2017 %Hba1C Yqf157 % HbA1c 38187-4 5.5 % 12/31/2017 %Hba1C Oie336 Gluc Ave 111 mg/dL 12/31/2017 Lipid Ord30 CHOL 154 mg/dL 07/02/2017 Lipid Ord30 HDL 49.0 mg/dl 07/02/2017 Lipid Ord30 TRIG 104 mg/dL 07/02/2017 Lipid Ord30 LDL 84 mg/dL 07/02/2017 Lipid Ord30 C/HDL 3.1 Ratio 07/02/2017 Tsh Ord6 hTSH II 2.76 uIU/mL 07/02/2017 Comp Metabolic Fzy531 NA 141 mEq/L 07/02/2017 Comp Metabolic Hxa604 K 4.7 mEq/L 07/02/2017 Comp Metabolic Dra567 CL 103 mEq/L 07/02/2017 Comp Metabolic Xtz751 CO2 31.0 mEq/L 07/02/2017 Comp Metabolic Rtj854 ANION GAP 12 07/02/2017 Comp Metabolic Bey123 GLUCOSE 135 mg/dL 07/02/2017 Comp Metabolic Uow658 Creat 0.9 mg/dL 07/02/2017 Comp Metabolic Cre010 eGFR 90 ml/min/1.73m2 07/02/2017 Comp Metabolic Zdw645 BUN 16 mg/dL 07/02/2017 Comp Metabolic Ckc592 B/C Ratio 17.8 Ratio 07/02/2017 Comp Metabolic Uob410 CALCIUM 9.7 mg/dL 07/02/2017 Comp Metabolic Htv349 ALK PHOS 42 U/L 07/02/2017 Comp Metabolic Pjo047 AST(SGOT) 24 U/L 07/02/2017 Comp Metabolic Dqi526 ALT(SGPT) 36 U/L 07/02/2017 Comp Metabolic Via430 BILI T 1.1 mg/dL 07/02/2017 Comp Metabolic Pbm986 ALBUMIN 4.5 g/dL 07/02/2017 Comp Metabolic Trj490 TPRO 6.7 g/dL 07/02/2017 Comp Metabolic Ewt211 GLOB 2.3 g/dL 07/02/2017 Comp Metabolic Miy752 A/G Ratio 2.0 Ratio 07/02/2017 Comp Metabolic Wrs475 Osmo 284 mOsmo 07/02/2017 Cbc With Differential Ord2 WBC 5.15 K/ul 07/02/2017 Cbc With Differential Ord2 RBC 4.75 M/ul 07/02/2017 Cbc With Differential Ord2 HGB 16.1 g/dl 07/02/2017 Cbc With Differential Ord2 HCT 44.6 % 07/02/2017 Cbc With Differential Ord2 Neut% 55.7 % 07/02/2017 Cbc With Differential Ord2 MCV 93.9 fl 07/02/2017 Cbc With Differential Ord2 Lymph% 34.2 % 07/02/2017 Cbc With Differential Ord2 [place]% 8.0 % 07/02/2017 Cbc With Differential Ord2 MCH 33.9 pg 07/02/2017 Cbc With Differential Ord2 Eos% 1.7 % 07/02/2017 Cbc With Differential Ord2 MCHC 36.1 pg 07/02/2017 Cbc With Differential Ord2 Baso% 0.4 % 07/02/2017 Cbc With Differential Ord2 PLT 182 K/ul 07/02/2017 Cbc With Differential Ord2 Neut ABS# 2.87 K/ul 07/02/2017 Cbc With Differential Ord2 RDW 12.4 % 07/02/2017 Cbc With Differential Ord2 Lymph ABS# 1.76 K/ul 07/02/2017 Cbc With Differential Ord2 [place] ABS# 0.4 K/ul 07/02/2017 Cbc With Differential Ord2 Eos ABS# 0.1 K/ul 07/02/2017 Cbc With Differential Ord2 Baso ABS# 0.0 K/ul 07/02/2017 %Hba1C Cxm912 % HbA1c 33389-1 5.3 % 07/02/2017 %Hba1C Str088 Gluc Ave 105 mg/dL 07/02/2017 Review of Systems System Result Effective Dates Constitutional No recent illness 2017 Constitutional No [...] No Procedures data Vital Signs Date Vital 01/03/2018 Blood Pressure 1: 120/78 Code : 8480-6 BMI: 29.4 Code : 50113-7 Heart Rate 1 : 60 bpm Height: 5'7" SpO2: 98% Weight: 188 lbs 07/08/2017 Blood Pressure 1: 122/70 Code : 8480-6 BMI: 29.1 Code : 55717-2 Heart Rate 1 : 66 bpm Height: 5'7" SpO2: 96% Weight: 186 lbs 01/05/2017 Blood Pressure 1: 132/70 Code : 8480-6 BMI: 29.9 Code : 77576-5 Heart Rate 1 : 55 bpm Height: 5'7" SpO2: 96% Weight: 191 lbs Functional Status No Functional Status data History of Present Illness Symptom Name Status Result Effective Date Notes hypertension Onset and Resolution ongoing 01/03/2018 None [...] data Encounters Encounter Performer Location Codes Date ([id number]) [id number] EST. PATIENT, LEVEL IV Diagnosis: Essential (primary) hypertension[ICD10: I10] Diagnosis: Mixed hyperlipidemia[ICD10: E78.2] [facility] CPT-4: 34834 01/03/2018 ([id number]) 00963 EST. PATIENT, LEVEL IV Diagnosis: Essential (primary) hypertension[ICD10: I10] Diagnosis: Mixed hyperlipidemia[ICD10: E78.2] [facility] CPT-4: 54245 07/08/2017 ([id number]) OFFICE VISIT, NEW - LEVEL 3 Diagnosis: Essential (primary) hypertension[ICD10: I10] Diagnosis: Mixed hyperlipidemia[ICD10: E78.2] [facility] CPT-4: 15361 01/05/2017 Plan of Care Planned Activity Notes Codes Status Date Patient Education: Patient Medication Summary Completed 06/29/2018 Care Plan: Comp Metabolic Pending 06/29/2018 Care Plan: Cbc With Differential Pending 06/29/2018 Care Plan: Tsh Pending 06/29/2018 Care Plan: Lipid Pending 06/29/2018 Care Plan: Total Psa Pending 06/29/2018 Visit Plan: Hypertension - well controlled [...] to medications. 01/03/2018 Appointment: [facility]Pt[facility]: [address] [place], [place] [phone] (15 min) Moderate 01/03/2018 Patient Education: Patient [...] medications. 07/08/2017 [facility] [phone] [id number] (15 min) Moderate 07/08/2017 Patient Education: Patient [...] Obesity Completed 01/05/2017 Appointment: [id number] New Patient 12/30/2016 Instructions Comment . Hypertension [...]
[2018-08-12] MEDS ORDERED: D5 LR IV SOLUTION 1,000 ML IV STA (07:43)
[2018-08-12] MEDS ORDERED: MIDAZOLAM 2 MG/2 ML (VERSED) VIAL IVP ONE (07:45)
[2018-08-12] MEDS ORDERED: fentaNYL INJECTION 100 MCG/2 ML AMP IVP ONE (07:45)
[2018-08-12] MEDS ORDERED: LIDOCAINE JELLY 2% 6 ML SYRINGE MM PRN (07:45)
[2018-08-12 08:00] VITALS: BP 128/86
[2018-08-12] MEDS ORDERED: LIDOCAINE JELLY 2% 6 ML SYRINGE ONE (08:03)
[2018-08-12] MEDS ORDERED: fentaNYL INJECTION 100 MCG/2 ML AMP ONE (08:03)
[2018-08-12] MEDS ORDERED: MIDAZOLAM 2 MG/2 ML (VERSED) VIAL ONE (08:03)
--- NOTE | 2018-08-12 08:07 | Pre-Op Note & Conscious Sedat ---
Pre-Operative Progress Note H&P Reviewed The H&P was reviewed, patient examined and no changes noted. Date H&P Reviewed: Aug 12, 2018 Time H&P Reviewed: 07:45 Conscious Sedation Pre-Proced ASA Score 2 For ASA 3 and 4: Consider anesthesia and medical clearance. Also, for patients with a history of failed moderate sedation consider anesthesia. Airway Lungs Heart ASA score ASA 1: a normal healthy patient ASA 2: a patient with a mild systemic disease (mid diabetes, controlled hypertension, obesity ASA 3: a patient with a severe systemic disease that limits activity (angina , COPD, prior Myocardial infarction) ASA 4: a patient with an incapacitating disease that is a constant threat to life (CHF, renal failure) ASA 5: a moribund patient not expected to survive 24 hrs. (ruptured aneurysm) ASA 6: a declared brain- patient whose organs are being harvested. For emergent operations, add the letter E after the classification Mallampati Classification Grade 2 Sedation Plan Analgesia, Amnesia, Plan communicated to team members, Discussed options with patient/fam, Discussed risks with patient/fam The patient is an appropriate candidate to undergo the planned procedure, sedation, and anesthesia. The patient immediately re-assessed prior to indication. HAYLIE MARIE MD Aug 12, 2018 08:07
[2018-08-12 09:15] VITALS: BP 121/71
[2018-08-12 09:18] VITALS: BP 124/66
[2018-08-12 10:00] VITALS: BP 124/66
--- NOTE | 2018-08-12 13:19 | OPERATIVE REPORT ---
DATE OF SERVICE: COLONOSCOPY SUMMARY INDICATION FOR THE PROCEDURE: Screening colonoscopy. The patient was placed in the left lateral decubitus position. Prior to undergoing colonoscopy, digital rectal evaluation was performed. Anal sphincter tone was normal and the perianal reflexes intact. Prostate is moderately enlarged, anodular and nontender to digital inspection. No other abnormalities, no additional inspection of the anal canal or distal rectal vault. The colonoscope was then inserted into the rectum and under direct visualization advanced to cecum. The cecum was identified by identification of the ileocecal valve and the cecal strap. Photographic documentation was obtained. Careful inspection was made as the colonoscope was withdrawn. Quality of the colonic prep was good. FINDINGS: There was no evidence for internal or external hemorrhoids. The rectum was unremarkable. Several small to medium size sigmoid diverticulum were present without evidence for diverticulitis. No other sigmoid colonic abnormalities were appreciated. The descending colon, splenic flexure, transverse colon, hepatic flexure, ascending colon and cecum were unremarkable. ASSESSMENT: 1. No evidence for neoplasia was identified on today's procedure. As the patient reports no family history for colon cancer, we would advocate consideration for repeat screening colonoscopy in 10 years. 2. Digital rectal evaluation was compatible with moderate BPH as noted above. 3. Mild to moderate diverticular disease confined to the sigmoid colon was present without evidence for diverticulitis. I thank you for the referral of this pleasant gentleman. Job ID: [id number] DocumentID: [id number] Dictated Date: 08/12/2018 08:51:59 Typing Teacher Date: 08/12/2018 13:18:38 Dictated By: HAYLIE MARIE MD
== END 2018-08-12 10:00 | disposition home or self-care (01) ==
LOC: ENDO 07:29
PROVIDERS: ATTEND Internal Medicine
DX: Z12.11 Encounter for screening for malignant neoplasm of colon (principal); K57.30 Diverticulosis of large intestine without perforation or abscess without bleeding; N40.0 Benign prostatic hyperplasia without lower urinary tract symptoms; I10 Essential (primary) hypertension; E78.5 Hyperlipidemia, unspecified